=== PATIENT | female | born 1980 | race Caucasian/White ===

== ENCOUNTER 2016-09-15 21:10 | Emergency (ER) | payer BC ==
[~2016-09-15] VITALS: Ht 160 cm; Wt 119.7 kg
[~2016-09-15 21:10] MED LIST: ALPR1TAB2 PO; ALPR1TAB7 PO; ARIP300S3 IM; BNZT1T PO; BREX2TAB PO; CLON0.1T PO; CYCL10TA45 PO; ESCI10TA PO; HYDR-3702 PO; IBP800T PO; LAMO200T14 PO; METF-759 PO; OXYC1TAB6 PO; OXYC1TAB8; OXYC1TAB87 PO; PRM25T GT; TOPI50TA37 PO; TRAM-291ED; ZIPR60CA2 PO
--- OUTSIDE RECORDS SUMMARY | 2016-09-15 21:13 | XMS REPORT | Continuity of Care Document ---
Author Author [facility] Organization [facility] Address Unknown Phone Unavailable Care Team Providers Care Interior Design Project Manager Name Role Phone PCP Unavailable Source Comments Some departments are not documenting in the electronic medical record. If you do not see the information that you expected, contact Release of Information in the Health Information Management department at [phone] for further assistance in locating additional records.[facility] Active Allergies and Adverse Reactions Not on File Current Medications Not on file Active Problems Not on file Social History Tobacco Use Types Packs/Day Years Used Date Never Assessed Plan of Care Health Maintenance Due Date Last Done Comments Physical (Comprehensive) 02/18/1988 Exam Pertussis Vaccine 02/18/1992 Tetanus Vaccine 1998 Cervical Cancer Screening 2002 Influenza Vaccine 05/16/2016 Results from Last 3 Months Not on file
--- OUTSIDE RECORDS SUMMARY | 2016-09-15 21:14 | XMS REPORT | Continuity of Care Document ---
Author Author [facility] Organization [facility] Address Unknown Phone Unavailable Care Team Providers Care Assembler Gold Frame Name Role Phone PCP Unavailable Source Comments Some departments are not documenting in the electronic medical record. If you do not see the information that you expected, contact Release of Information in the Health Information Management department at [phone] for further assistance in locating additional records.[facility] Active Allergies and Adverse Reactions Not on [...]
--- OUTSIDE RECORDS SUMMARY | 2016-09-15 21:17 | XMS REPORT | Continuity of Care Document ---
Author Author [facility] Organization [facility] Address Unknown Phone Unavailable Care Team Providers Care Transition Coach Name Role Phone PCP Unavailable Source Comments Some departments are not documenting in the electronic medical record. If you do not see the information that you expected, contact Release of Information in the Health Information Management department at [phone] for further assistance in locating additional records.[facility] Active Allergies and Adverse Reactions Not [...]
--- OUTSIDE RECORDS SUMMARY | 2016-09-15 21:17 | XMS REPORT | Continuity of Care Document ---
Author Author [facility] Organization [facility] Address Unknown Phone Unavailable Care Team Providers Care Lithographic Press Feeder Name Role Phone PCP Unavailable Source Comments Some departments are not documenting in the electronic medical record. If you do not see the information that you expected, contact Release of Information in the Health Information Management department at [phone] for further assistance in locating additional records.[facility] Active Allergies and Adverse Reactions Not [...]
[2016-09-15] MEDS ORDERED: ESCI20TA39 PO (21:35)
[2016-09-15] MEDS ORDERED: TOPI-27 PO (21:35)
[2016-09-15] MEDS ORDERED: KETOROLAC 30 MG/ML (TORADOL) 1 ML VIAL IV ONE (21:40)
[2016-09-15] MEDS ORDERED: PROMETHAZINE HCL INJ 12.5 MG in SODIUM CHLORIDE 25 ML IV ONE (21:40)
[2016-09-15] MEDS ORDERED: SODIUM CHLORIDE FLUSH 10 ML SYR IV PRN (21:40)
[2016-09-15] MEDS ORDERED: SODIUM CHLORIDE FLUSH 3 ML SYR IV ONE (21:40)
[2016-09-15] MEDS ORDERED: NS IV 500 ML 500 ML IV SCH (21:40)
[2016-09-15 22:12] LABS: BASOPHILS % (AUTO) 1 % (0-2); EOSINOPHILS # (AUTO) 0.4 10^3uL; EOSINOPHILS % (AUTO) 3 % (0-4); LYMPHOCYTES # (AUTO) 3.7 X10^3; MEAN CORPUSCULAR HEMOGLOBIN 29.1 PG (26.0-34.0); MEAN CORPUSCULAR HGB CONC 32.4 g/dL (31.0-37.0); MEAN CORPUSCULAR VOLUME 90 FL (80-100); MONOCYTES # (AUTO) 0.8 X10^3; MONOCYTES % (AUTO) 7 % (3-11); NEUTROPHILS # (AUTO) 6.1 X10^3; NEUTROPHILS % (AUTO) 55 % (51-67); PLATELET COUNT 401 10^3uL (150-450); WHITE BLOOD COUNT 10.96 10^3uL (4.0-11.0)
--- NOTE | 2016-09-15 22:15 | NUR ---
REPORT TAKEN FROM [facility]ION AND ACCEPTED CARE OF PT
[2016-09-15 22:19] LABS: ALBUMIN 3.9 g/dL (3.4-5.0); ANION GAP 16.2 MEQ/L (3-15); CALCULATED IONIZED CALCIUM 4.1 mg/dL (3.8-4.6); TOTAL PROTEIN 6.6 g/dL (6.4-8.5)
[2016-09-15 22:35] LABS: AMPHETAMINE SCREEN, URINE Negative (Negative); CANNABINOID SCREEN, URINE Negative (Negative); METHAMPHETAMINE SCREEN URINE S NEGATIVE (NEGATIVE); OPIATE SCREEN URINE Negative (Negative); PROPOXYPHENE STAT NEGATIVE (NEGATIVE)
[2016-09-15 22:49] LABS: BILIRUBIN,URINE Negative (Negative); CLARITY,URINE Turbid; COLOR,URINE Yellow; GLUCOSE, URINE (UA) Negative (Negative); LEUKOCYTE ESTERASE ,URINE Negative (Negative); PH,URINE 5.5 (5.0 - 8.0); UROBILINOGEN,URINE 0.2 mg/dL (0.2-1.0)
[2016-09-15 23:00] LABS: RBC,URINE 0-2 /HPF; URINE CENTRIFUGED VOLUME 12 mL
[2016-09-16] MEDS ORDERED: ONDANSETRON 2 MG/ML (Z0FRAN) 2 ML VIAL IV ONE (00:55)
[2016-09-16] MEDS ORDERED: HYDROmorphone 1 MG/ML (DILAUDID) SYRINGE IV ONE (00:55)
[2016-09-16 01:36] VITALS: BP 117/85
--- NOTE | 2016-09-16 11:00 | Diagnostic Imaging Report ---
PROCEDURE: CT abdomen and pelvis without contrast. TECHNIQUE: Multiple contiguous axial images were obtained through the abdomen and pelvis without the use of intravenous contrast. INDICATION: Right lower quadrant pain. Study compared 06/19/2016. 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 Liver shows mild hepatic steatosis with previous cholecystectomy. No biliary dilatation. Adrenals, spleen, and pancreas negative. There is no opaque kidney stone. There is no hydronephrosis. There is no appendicitis or diverticulitis. Uterus, adnexa, and urinary bladder appeared normal. No ascites, abscess, hematoma, or other fluid collection. IMPRESSION: Negative appendix. Unobstructed urinary tracts. Fatty liver with no biliary dilatation. No acute-appearing abnormality. Agree with preliminary. Dictated by: Dictated on workstation # [id number]
[2016-11-08] MEDS ORDERED: OXYC1TAB7 PO (20:48)
[2016-11-08] MEDS ORDERED: METH500T35 PO (20:48)
== END 2016-09-16 01:38 | disposition home or self-care (01) ==
LOC: ED 21:12
DX: R10.31 Right lower quadrant pain (principal); R11.2 Nausea with vomiting, unspecified; R10.11 Right upper quadrant pain; M54.9 Dorsalgia, unspecified
CPT/HCPCS: 36415; 74176; 80053; 80307; 81003; 81015; 82150; 83690; 84703; 85025; 86140; 96365; 96375; 99284; J1170; J1885; J2405; J2550; J7040; 99283

== ENCOUNTER 2016-10-01 19:21 | Emergency (ER) | payer BC ==
[~2016-10-01] VITALS: Ht 160 cm; Wt 129.5 kg
[~2016-10-01 19:21] MED LIST changes: +ESCI20TA39 PO; +TOPI-27 PO
--- OUTSIDE RECORDS SUMMARY | 2016-10-01 19:24 | XMS REPORT | Continuity of Care Document ---
Author Author [facility] Organization [facility] Address Unknown Phone Unavailable Care Team Providers Care Relationship Associate Name Role Phone PCP Unavailable Source Comments Some departments are not documenting in the electronic medical record. If you do not see the information that you expected, contact Release of Information in the Health Information Management department at [phone] for further assistance in locating additional records.[facility] Active Allergies and Adverse Reactions Not on [...]
--- OUTSIDE RECORDS SUMMARY | 2016-10-01 19:25 | XMS REPORT | Continuity of Care Document ---
Author Author [facility] Organization [facility] Address Unknown Phone Unavailable Care Team Providers Care Events Director Name Role Phone PCP Unavailable Source Comments Some departments are not documenting in the electronic medical record. If you do not see the information that you expected, contact Release of Information in the Health Information Management department at [phone] for further assistance in locating additional records.[facility] Active Allergies and Adverse Reactions Not [...]
--- OUTSIDE RECORDS SUMMARY | 2016-10-01 19:25 | XMS REPORT | Continuity of Care Document ---
Author Author [facility] Organization [facility] Address Unknown Phone Unavailable Care Team Providers Care Assistant Professor Of Chemistry Name Role Phone PCP Unavailable Source Comments Some departments are not documenting in the electronic medical record. If you do not see the information that you expected, contact Release of Information in the Health Information Management department at [phone] for further assistance in locating additional records.[facility] Active Allergies and Adverse Reactions Not [...]
--- OUTSIDE RECORDS SUMMARY | 2016-10-01 19:25 | XMS REPORT | Continuity of Care Document ---
Author Author [facility] Organization [facility] Address Unknown Phone Unavailable Care Team Providers Care Lining Cutter Name Role Phone PCP Unavailable Source Comments Some departments are not documenting in the electronic medical record. If you do not see the information that you expected, contact Release of Information in the Health Information Management department at [phone] for further assistance in locating additional records.[facility] Active Allergies and Adverse Reactions Not [...]
[2016-10-01] MEDS ORDERED: diphenhydrAMINE 50 MG/ML INJ (BENADRYL) IV ONE (20:15)
[2016-10-01] MEDS ORDERED: KETOROLAC 30 MG/ML (TORADOL) 1 ML VIAL IV ONE (20:15)
[2016-10-01] MEDS ORDERED: PROMETHAZINE HCL INJ 25 MG in SODIUM CHLORIDE 25 ML IV ONE (20:15)
[2016-10-01] MEDS ORDERED: SODIUM CHLORIDE FLUSH 3 ML SYR IV PRN (20:15)
[2016-10-01] MEDS ORDERED: SODIUM CHLORIDE FLUSH 10 ML SYR IV PRN (20:15)
[2016-10-01 22:22] VITALS: BP 162/94
[2016-11-08] MEDS ORDERED: OXYC1TAB7 PO (20:48)
[2016-11-08] MEDS ORDERED: METH500T35 PO (20:48)
== END 2016-10-01 22:21 | disposition home or self-care (01) ==
LOC: ED 19:21
DX: G43.909 Migraine, unspecified, not intractable, without status migrainosus (principal)
CPT/HCPCS: 96361; 96365; 96375; 99283; J1200; J1885; J2550; J7030; 99282

== ENCOUNTER 2016-10-17 22:04 | Emergency (ER) | payer BC ==
[~2016-10-17] VITALS: Ht 162.6 cm; Wt 132.5 kg
[2016-10-17] MEDS ORDERED: diphenhydrAMINE 50 MG/ML INJ (BENADRYL) IV ONE (22:30)
[2016-10-17] MEDS ORDERED: ONDANSETRON 2 MG/ML (Z0FRAN) 2 ML VIAL IV ONE ×2 (22:30→23:55)
[2016-10-17] MEDS ORDERED: SODIUM CHLORIDE FLUSH 3 ML SYR IV PRN (22:30)
[2016-10-17] MEDS ORDERED: KETOROLAC 30 MG/ML (TORADOL) 1 ML VIAL IV ONE (22:30)
[2016-10-17] MEDS: SODIUM CHLORIDE FLUSH 10 ML SYR IV PRN (22:50)
[2016-10-17] MEDS ORDERED: HALOPERIDOL 5 MG/ML (HALDOL) 1 ML AMP IV ONE (23:55)
[2016-10-18] MEDS: SODIUM CHLORIDE FLUSH 10 ML SYR IV PRN
--- NOTE | 2016-10-18 00:52 | NUR ---
CHECKED ON PT AND SHE STATES SHE IS GETTING FRUSTRATED THAT H/A AND NAUSEA JUST NOT GETTING ANY BETTER. LET DR RUSH KNOW THIS AND HE IS NOW IN ROOM WITH PT
[2016-10-18] MEDS ORDERED: METOCLOPRAMIDE 10 MG/2 ML (REGLAN) VIAL IV ONE (00:55)
[2016-10-18 01:19] VITALS: BP 132/88
== END 2016-10-18 01:20 | disposition home or self-care (01) ==
LOC: ED 22:06
DX: G43.909 Migraine, unspecified, not intractable, without status migrainosus (principal)
CPT/HCPCS: 96361; 96374; 96375; 96376; 99283; J1200; J1630; J1885; J2405; J2765; J7030

== ENCOUNTER 2016-10-20 18:27 | Emergency (ER) | payer BC, OTHER ==
[~2016-10-20] VITALS: Ht 162.6 cm; Wt 129.5 kg
[2016-10-20] MEDS ORDERED: METOCLOPRAMIDE 10 MG/2 ML (REGLAN) VIAL IM ONE (19:25)
[2016-10-20] MEDS ORDERED: HYDROmorphone 1 MG/ML (DILAUDID) SYRINGE IM ONE (19:25)
[2016-10-20 19:30] VITALS: BP 127/84
[2016-10-20] MEDS ORDERED: ORPHENADRINE 60 MG/2 ML (NORFLEX) AMP IM ONE (20:35)
--- NOTE | 2016-10-20 20:54 | NUR ---
Pt departed from the ED with her significant other.
== END 2016-10-20 19:30 | disposition home or self-care (01) ==
LOC: ED 18:29
DX: S16.1XXA Strain of muscle, fascia and tendon at neck level, initial encounter (principal); R51 Headache
CPT/HCPCS: 70450; 72125; 96372; 99283; J1170; J2360; J2765; 99282

== ENCOUNTER 2016-11-08 20:23 | Emergency (ER) | payer OTHER, BC ==
[~2016-11-08] VITALS: Ht 162.6 cm; Wt 95.4 kg
[2016-11-08] MEDS ORDERED: SODIUM CHLORIDE FLUSH 3 ML SYR IV PRN (20:45)
[2016-11-08] MEDS ORDERED: ONDANSETRON 2 MG/ML (Z0FRAN) 2 ML VIAL IV ONE (20:45)
[2016-11-08] MEDS ORDERED: SODIUM CHLORIDE FLUSH 10 ML SYR IV PRN (20:45)
[2016-11-08] MEDS ORDERED: LORazepam 2 MG/ML (ATIVAN) 1 ML VIAL IV ONE (20:45)
[2016-11-08] MEDS ORDERED: KETOROLAC 30 MG/ML (TORADOL) 1 ML VIAL IV ONE (20:45)
[2016-11-08] MEDS ORDERED: diphenhydrAMINE 50 MG/ML INJ (BENADRYL) IV ONE (20:45)
[2016-11-08 20:53] LABS: BILIRUBIN,URINE Negative (Negative); COLOR,URINE Yellow; GLUCOSE, URINE (UA) Negative (Negative); LEUKOCYTE ESTERASE ,URINE Negative (Negative); UROBILINOGEN,URINE 0.2 mg/dL (0.2-1.0)
[2016-11-08 20:56] LABS: CLARITY,URINE Slightly Cloudy
[2016-11-08 20:59] LABS: URINE CENTRIFUGED VOLUME 12 mL
[2016-11-08 21:00] LABS: AMORPHOUS SEDIMENT,UR 1+ /HPF
[2016-11-08 21:06] LABS: AMPHETAMINE SCREEN, URINE Negative (Negative); CANNABINOID SCREEN, URINE Negative (Negative); METHAMPHETAMINE SCREEN URINE S NEGATIVE (NEGATIVE); OPIATE SCREEN URINE Negative (Negative)
[2016-11-08 21:07] LABS: PROPOXYPHENE STAT NEGATIVE (NEGATIVE)
[2016-11-08 21:28] LABS: BASOPHILS % (AUTO) 1 % (0-2); EOSINOPHILS # (AUTO) 0.3 10^3uL; EOSINOPHILS % (AUTO) 3 % (0-4); LYMPHOCYTES # (AUTO) 2.6 X10^3; MEAN CORPUSCULAR HEMOGLOBIN 29.2 PG (26.0-34.0); MEAN CORPUSCULAR HGB CONC 32.9 g/dL (31.0-37.0); MEAN CORPUSCULAR VOLUME 89 FL (80-100); MEAN PLATELET VOLUME 9.5 FL (6.0-9.5); MONOCYTES # (AUTO) 1.1 X10^3; MONOCYTES % (AUTO) 10 % (3-11); NEUTROPHILS # (AUTO) 6.7 X10^3; NEUTROPHILS % (AUTO) 63 % (51-67); PLATELET COUNT 354 10^3uL (150-450); WHITE BLOOD COUNT 10.69 10^3uL (4.0-11.0)
[2016-11-08 21:41] LABS: ANION GAP 14.6 MEQ/L (3-15)
[2016-11-08] MEDS ORDERED: HYDROmorphone 1 MG/ML (DILAUDID) SYRINGE IV ONE (22:55)
[2016-11-08 23:27] VITALS: BP 136/90
== END 2016-11-08 23:25 | disposition home or self-care (01) ==
LOC: ED 20:26
DX: G43.809 Other migraine, not intractable, without status migrainosus (principal); R10.9 Unspecified abdominal pain
CPT/HCPCS: 36415; 74176; 80048; 80307; 81003; 81015; 81025; 85025; 96361; 96374; 96375; 99284; J1170; J1200; J1885; J2060; J2405; J7030; 99283

== ENCOUNTER 2016-12-22 01:10 | Emergency (ER) | payer BC, OTHER ==
[~2016-12-22] VITALS: Ht 160 cm; Wt 131.8 kg
[~2016-12-22 01:10] MED LIST changes: +METH500T35 PO; +OXYC1TAB7 PO
--- OUTSIDE RECORDS SUMMARY | 2016-12-22 01:15 | XMS REPORT | Continuity of Care Document ---
Author Author [facility] Organization [facility] Address Unknown Phone Unavailable Care Team Providers Care De Alcholizer Name Role Phone PCP Unavailable Source Comments Some departments are not documenting in the electronic medical record. If you do not see the information that you expected, contact Release of Information in the Health Information Management department at [phone] for further assistance in locating additional records.[facility] Active Allergies and Adverse Reactions Not on File Current Medications Not on file Active Problems Not on file Social History Tobacco Use Types Packs/Day Years Used Date Never Assessed Plan of Care Health Maintenance Due Date Last Done Comments Physical (Comprehensive) 02/18/1988 Exam Pertussis Vaccine 02/18/1992 Tetanus Vaccine 1998 Cervical Cancer Screening 2002 Influenza Vaccine 05/16/2017 Results from Last 3 Months Not on file
--- OUTSIDE RECORDS SUMMARY | 2016-12-22 01:15 | XMS REPORT | Continuity of Care Document ---
Author Author [facility] Organization [facility] Address Unknown Phone Unavailable Care Team Providers Care Shuttle Route Vehicle Operator Name Role Phone PCP Unavailable Source Comments Some departments are not documenting in the electronic medical record. If you do not see the information that you expected, contact Release of Information in the Health Information Management department at [phone] for further assistance in locating additional records.[facility] Active Allergies and Adverse Reactions Not [...]
--- OUTSIDE RECORDS SUMMARY | 2016-12-22 01:17 | XMS REPORT | Continuity of Care Document ---
Author Author [facility] Organization [facility] Address Unknown Phone Unavailable Care Team Providers Care Director For Beauty [employer] Name Role Phone PCP Unavailable Source Comments Some departments are not documenting in the electronic medical record. If you do not see the information that you expected, contact Release of Information in the Health Information Management department at [phone] for further assistance in locating additional records.[facility] Active Allergies and Adverse Reactions Not [...]
--- OUTSIDE RECORDS SUMMARY | 2016-12-22 01:17 | XMS REPORT | Continuity of Care Document ---
Author Author [facility] Organization [facility] Address Unknown Phone Unavailable Care Team Providers Care Associate Vice President Name Role Phone PCP Unavailable Source Comments Some departments are not documenting in the electronic medical record. If you do not see the information that you expected, contact Release of Information in the Health Information Management department at [phone] for further assistance in locating additional records.[facility] [...]
[2016-12-22] MEDS ORDERED: KETOROLAC 60 MG/2 ML (TORADOL) VIAL IM ONE (01:40)
[2016-12-22] MEDS ORDERED: ONDANSETRON 2 MG/ML (Z0FRAN) 2 ML VIAL IV ONE (01:40)
[2016-12-22 02:04] LABS: BASOPHILS % (AUTO) 0 % (0-2); EOSINOPHILS # (AUTO) 0.2 10^3uL; EOSINOPHILS % (AUTO) 2 % (0-4); LYMPHOCYTES # (AUTO) 3.2 X10^3; MEAN CORPUSCULAR HEMOGLOBIN 28.9 PG (26.0-34.0); MEAN CORPUSCULAR VOLUME 90 FL (80-100); MEAN PLATELET VOLUME 9.3 FL (6.0-9.5); MONOCYTES % (AUTO) 9 % (3-11); NEUTROPHILS # (AUTO) 6.5 X10^3; NEUTROPHILS % (AUTO) 59 % (51-67); PLATELET COUNT 321 10^3uL (150-450); WHITE BLOOD COUNT 10.95 10^3uL (4.0-11.0)
[2016-12-22] MEDS ORDERED: KETOROLAC 30 MG/ML (TORADOL) 1 ML VIAL IV ONE (02:05)
[2016-12-22 02:10] LABS: ALBUMIN 3.7 g/dL (3.4-5.0); ANION GAP 14.3 MEQ/L (3-15); CALCULATED IONIZED CALCIUM 3.9 mg/dL (3.8-4.6); TOTAL PROTEIN 6.7 g/dL (6.4-8.5)
[2016-12-22 02:13] LABS: BILIRUBIN,URINE Negative (Negative); CLARITY,URINE Clear; COLOR,URINE Yellow; GLUCOSE, URINE (UA) Negative (Negative); LEUKOCYTE ESTERASE ,URINE Negative (Negative); UROBILINOGEN,URINE 0.2 mg/dL (0.2-1.0)
[2016-12-22 02:16] LABS: HCG,QUALITATIVE URINE Negative (Negative)
[2016-12-22] MEDS ORDERED: SODIUM CHLORIDE FLUSH 10 ML SYR IV PRN (02:20)
[2016-12-22] MEDS ORDERED: SODIUM CHLORIDE FLUSH 3 ML SYR IV ONE (02:20)
[2016-12-22] MEDS ORDERED: ED- ONDANSETRON ODT 4 MG (ZOFRAN) 4 TABLETS/BTL PO ONE (02:40)
[2016-12-22 03:18] VITALS: BP 122/64
== END 2016-12-22 02:50 | disposition home or self-care (01) ==
LOC: ED 01:13
DX: R10.84 Generalized abdominal pain (principal)
CPT/HCPCS: 36415; 80053; 81003; 81025; 83690; 85025; 96361; 96374; 96375; 99284; J1885; J2405; J7030; 99282

== ENCOUNTER 2016-12-28 12:49 | Emergency (ER) | payer OTHER, BC ==
[~2016-12-28] VITALS: Ht 160 cm; Wt 131.5 kg
--- OUTSIDE RECORDS SUMMARY | 2016-12-28 12:56 | XMS REPORT | Continuity of Care Document ---
Author Author [facility] Organization [facility] Address Unknown Phone Unavailable Care Team Providers Care Position Clerk Name Role Phone PCP Unavailable Source Comments Some departments are not documenting in the electronic medical record. If you do not see the information that you expected, contact Release of Information in the Health Information Management department at [phone] for further assistance in locating additional records.[facility] Active Allergies and Adverse Reactions Not on [...]
--- OUTSIDE RECORDS SUMMARY | 2016-12-28 12:56 | XMS REPORT | Continuity of Care Document ---
Author Author [facility] Organization [facility] Address Unknown Phone Unavailable Care Team Providers Care Telephone Surveyor Name Role Phone PCP Unavailable Source Comments Some departments are not documenting in the electronic medical record. If you do not see the information that you expected, contact Release of Information in the Health Information Management department at [phone] for further assistance in locating additional records.[facility] [...]
[2016-12-28] MEDS ORDERED: SUMA6PEN7 SC (13:20)
[2016-12-28] MEDS ORDERED: ZOLM5SPR5 (13:20)
[2016-12-28] MEDS ORDERED: SODIUM CHLORIDE FLUSH 3 ML SYR IV ONE (13:25)
[2016-12-28] MEDS ORDERED: diphenhydrAMINE 50 MG/ML INJ (BENADRYL) IV ONE (13:25)
[2016-12-28] MEDS ORDERED: KETOROLAC 30 MG/ML (TORADOL) 1 ML VIAL IV ONE (13:25)
[2016-12-28] MEDS ORDERED: METOCLOPRAMIDE 10 MG/2 ML (REGLAN) VIAL IV ONE (13:25)
[2016-12-28] MEDS ORDERED: SODIUM CHLORIDE FLUSH 10 ML SYR IV PRN (13:25)
[2016-12-28 19:01] VITALS: BP 119/68
== END 2016-12-28 15:35 | disposition home or self-care (01) ==
LOC: EDUNIT# 12:49 → ED 12:52
DX: G43.909 Migraine, unspecified, not intractable, without status migrainosus (principal)
CPT/HCPCS: 96361; 96374; 96375; 99283; J1200; J1885; J2765; J7030; 99282

== ENCOUNTER 2017-01-02 16:31 | Emergency (ER) | payer OTHER, BC ==
[~2017-01-02] VITALS: Ht 160 cm; Wt 130.0 kg
[~2017-01-02 16:31] MED LIST changes: +SUMA6PEN7 SC; +ZOLM5SPR5
--- OUTSIDE RECORDS SUMMARY | 2017-01-02 16:35 | XMS REPORT | Continuity of Care Document ---
Author Author [facility] Organization [facility] Address Unknown Phone Unavailable Care Team Providers Care Schedule Hanger Name Role Phone PCP Unavailable Source Comments Some departments are not documenting in the electronic medical record. If you do not see the information that you expected, contact Release of Information in the Health Information Management department at [phone] for further assistance in locating additional records.[facility] Active Allergies and Adverse Reactions [...]
--- OUTSIDE RECORDS SUMMARY | 2017-01-02 16:35 | XMS REPORT | Continuity of Care Document ---
Author Author [facility] Organization [facility] Address Unknown Phone Unavailable Care Team Providers Care Shop Worker Name Role Phone PCP Unavailable Source Comments Some departments are not documenting in the electronic medical record. If you do not see the information that you expected, contact Release of Information in the Health Information Management department at [phone] for further assistance in locating additional records.[facility] Active Allergies and Adverse Reactions [...]
--- OUTSIDE RECORDS SUMMARY | 2017-01-02 16:37 | XMS REPORT | Continuity of Care Document ---
Author Author [facility] Organization [facility] Address Unknown Phone Unavailable Care Team Providers Care System Development Engineer Name Role Phone PCP Unavailable Source Comments Some departments are not documenting in the electronic medical record. If you do not see the information that you expected, contact Release of Information in the Health Information Management department at [phone] for further assistance in locating additional records.[facility] Active Allergies and Adverse Reactions [...]
--- OUTSIDE RECORDS SUMMARY | 2017-01-02 16:37 | XMS REPORT | Continuity of Care Document ---
Author Author [facility] Organization [facility] Address Unknown Phone Unavailable Care Team Providers Care Stadium Manager Name Role Phone PCP Unavailable Source Comments Some departments are not documenting in the electronic medical record. If you do not see the information that you expected, contact Release of Information in the Health Information Management department at [phone] for further assistance in locating additional records.[facility] [...]
[2017-01-02] MEDS ORDERED: ONDA4TAB8 PO (16:54)
[2017-01-02] MEDS ORDERED: NORE0.357 PO (16:55)
[2017-01-02] MEDS ORDERED: KETOROLAC 30 MG/ML (TORADOL) 1 ML VIAL IV ONE (17:10)
[2017-01-02] MEDS ORDERED: diphenhydrAMINE 50 MG/ML INJ (BENADRYL) IV ONE (17:10)
[2017-01-02] MEDS ORDERED: METOCLOPRAMIDE 10 MG/2 ML (REGLAN) VIAL IV ONE (17:10)
[2017-01-02] MEDS ORDERED: DEXAMETHASONE 10 MG/ML (DECADRON) VIAL IV ONE (17:10)
[2017-01-02] MEDS ORDERED: SODIUM CHLORIDE FLUSH 10 ML SYR IV PRN (17:20)
[2017-01-02] MEDS ORDERED: SODIUM CHLORIDE FLUSH 3 ML SYR IV PRN (17:20)
[2017-01-02 18:35] VITALS: BP 108/74
== END 2017-01-02 18:53 | disposition home or self-care (01) ==
LOC: ED 16:32
DX: G43.909 Migraine, unspecified, not intractable, without status migrainosus (principal)
CPT/HCPCS: 96361; 96374; 96375; 99283; J1100; J1200; J1885; J2765; J7030; 99282

== ENCOUNTER 2017-01-19 01:41 | Emergency (ER) | payer BC, OTHER ==
[~2017-01-19] VITALS: Ht 160 cm; Wt 132.4 kg
[~2017-01-19 01:41] MED LIST changes: +NORE0.357 PO; +ONDA4TAB8 PO
--- OUTSIDE RECORDS SUMMARY | 2017-01-19 01:45 | XMS REPORT | Continuity of Care Document ---
Author Author [facility] Organization [facility] Address Unknown Phone Unavailable Care Team Providers Care Precise Winder Name Role Phone PCP Unavailable Source Comments Some departments are not documenting in the electronic medical record. If you do not see the information that you expected, contact Release of Information in the Health Information Management department at [phone] for further assistance in locating additional records.[facility] Active Allergies and Adverse Reactions [...]
--- OUTSIDE RECORDS SUMMARY | 2017-01-19 01:45 | XMS REPORT | Continuity of Care Document ---
Author Author [facility] Organization [facility] Address Unknown Phone Unavailable Care Team Providers Care Side Panel Padder Name Role Phone PCP Unavailable Source Comments Some departments are not documenting in the electronic medical record. If you do not see the information that you expected, contact Release of Information in the Health Information Management department at [phone] for further assistance in locating additional records.[facility] Active Allergies and Adverse Reactions Not [...]
--- OUTSIDE RECORDS SUMMARY | 2017-01-19 01:46 | XMS REPORT | Continuity of Care Document ---
Author Author [facility] Organization [facility] Address Unknown Phone Unavailable Care Team Providers Care [place] Name Role Phone PCP Unavailable Source Comments Some departments are not documenting in the electronic medical record. If you do not see the information that you expected, contact Release of Information in the Health Information Management department at [phone] for further assistance in locating additional records.[facility] Active Allergies and Adverse [...]
--- OUTSIDE RECORDS SUMMARY | 2017-01-19 01:47 | XMS REPORT | Continuity of Care Document ---
Author Author [facility] Organization [facility] Address Unknown Phone Unavailable Care Team Providers Care Casino Floorperson Name Role Phone PCP Unavailable Source Comments Some departments are not documenting in the electronic medical record. If you do not see the information that you expected, contact Release of Information in the Health Information Management department at [phone] for further assistance in locating additional records.[facility] Active Allergies and Adverse Reactions [...]
[2017-01-19] MEDS ORDERED: KETOROLAC 30 MG/ML (TORADOL) 1 ML VIAL IV ONE (02:00)
[2017-01-19] MEDS ORDERED: ONDANSETRON 2 MG/ML (Z0FRAN) 2 ML VIAL IV ONE (02:00)
[2017-01-19] MEDS ORDERED: SODIUM CHLORIDE FLUSH 10 ML SYR IV PRN (02:00)
[2017-01-19] MEDS ORDERED: SODIUM CHLORIDE FLUSH 3 ML SYR IV PRN (02:00)
[2017-01-19 02:21] LABS: BASOPHILS % (AUTO) 0 % (0-2); EOSINOPHILS # (AUTO) 0.3 10^3uL; EOSINOPHILS % (AUTO) 3 % (0-4); LYMPHOCYTES # (AUTO) 2.8 X10^3; MEAN CORPUSCULAR HEMOGLOBIN 29.2 PG (26.0-34.0); MEAN CORPUSCULAR VOLUME 93 FL (80-100); MEAN PLATELET VOLUME 9.6 FL (6.0-9.5); MONOCYTES # (AUTO) 0.7 X10^3; MONOCYTES % (AUTO) 9 % (3-11); NEUTROPHILS # (AUTO) 4.5 X10^3; NEUTROPHILS % (AUTO) 54 % (51-67); PLATELET COUNT 317 10^3uL (150-450); WHITE BLOOD COUNT 8.33 10^3uL (4.0-11.0)
[2017-01-19] MEDS: morphine INJ 4 MG/ML 1 ML SYRINGE IV PRN ×2 (02:23→03:00)
[2017-01-19 02:28] LABS: MEAN CORPUSCULAR HGB CONC 31.5 g/dL (31.0-37.0)
[2017-01-19 02:29] LABS: ANION GAP 15.6 MEQ/L (3-15); TOTAL PROTEIN 7.1 g/dL (6.4-8.5)
[2017-01-19] MEDS ORDERED: METOCLOPRAMIDE 10 MG/2 ML (REGLAN) VIAL IV ONE (03:05)
[2017-01-19] MEDS ORDERED: HYDROmorphone 1 MG/ML (DILAUDID) SYRINGE IV ONE ×2 (03:05→04:15)
--- NOTE | 2017-01-19 03:20 | NUR ---
PT STATED SHE THOUGHT IF SHE GOT THIS SECOND DILAUDID SHE COULD GO HOME IT MAKES HER FEEL BETTER. US OBTAINED PRIOR TO GIVING THE DILAUDID
[2017-01-19] MEDS ORDERED: METO-311 PO (03:37)
[2017-01-19] MEDS ORDERED: NF-TORA10 PO (03:37)
[2017-01-19] MEDS ORDERED: TAMSULOSIN 0.4 MG (FLOMAX) CAP PO ONE (03:40)
[2017-01-19] MEDS ORDERED: HYDROmorphone 1 MG/ML (DILAUDID) SYRINGE ONE (04:11)
[2017-01-19 04:35] LABS: BILIRUBIN,URINE Negative (Negative); CLARITY,URINE Clear; COLOR,URINE Yellow; GLUCOSE, URINE (UA) Negative (Negative); LEUKOCYTE ESTERASE ,URINE Negative (Negative); UROBILINOGEN,URINE 0.2 mg/dL (0.2-1.0)
[2017-01-19 05:11] VITALS: BP 109/74
== END 2017-01-19 05:13 | disposition home or self-care (01) ==
LOC: ED 01:42
DX: R10.32 Left lower quadrant pain (principal); M54.89 Other dorsalgia; Z87.442 Personal history of urinary calculi
CPT/HCPCS: 36415; 80053; 81003; 82150; 83690; 85025; 96361; 96374; 96375; 96376; 99284; J1170; J1885; J2270; J2405; J2765; J7030; 99282

== ENCOUNTER 2017-02-03 22:08 | Emergency (ER) | payer BC ==
[~2017-02-03] VITALS: Ht 160 cm; Wt 173.8 kg
[~2017-02-03 22:08] MED LIST changes: +METO-311 PO; +NF-TORA10 PO
--- OUTSIDE RECORDS SUMMARY | 2017-02-03 22:13 | XMS REPORT | Continuity of Care Document ---
Author Author [facility] Organization [facility] Address Unknown Phone Unavailable Care Team Providers Care Consultants Intern Name Role Phone PCP Unavailable Source Comments Some departments are not documenting in the electronic medical record. If you do not see the information that you expected, contact Release of Information in the Health Information Management department at [phone] for further assistance in locating additional records.[facility] [...]
--- OUTSIDE RECORDS SUMMARY | 2017-02-03 22:13 | XMS REPORT | Continuity of Care Document ---
Author Author [facility] Organization [facility] Address Unknown Phone Unavailable Care Team Providers Care Oral And Maxillofacial Surgery Name Role Phone PCP Unavailable Source Comments Some departments are not documenting in the electronic medical record. If you do not see the information that you expected, contact Release of Information in the Health Information Management department at [phone] for further assistance in locating additional records.[facility] Active Allergies and Adverse Reactions Not [...]
--- OUTSIDE RECORDS SUMMARY | 2017-02-03 22:14 | XMS REPORT | Continuity of Care Document ---
Author Author [facility] Organization [facility] Address Unknown Phone Unavailable Care Team Providers Care Weaving Machine Operator Name Role Phone PCP Unavailable Source Comments Some departments are not documenting in the electronic medical record. If you do not see the information that you expected, contact Release of Information in the Health Information Management department at [phone] for further assistance in locating additional records.[facility] Active Allergies and Adverse Reactions Not [...]
--- OUTSIDE RECORDS SUMMARY | 2017-02-03 22:14 | XMS REPORT | Continuity of Care Document ---
Author Author [facility] Organization [facility] Address Unknown Phone Unavailable Care Team Providers Care Hardboard Factory Worker Name Role Phone PCP Unavailable Source Comments Some departments are not documenting in the electronic medical record. If you do not see the information that you expected, contact Release of Information in the Health Information Management department at [phone] for further assistance in locating additional records.[facility] Active Allergies and Adverse Reactions Not on [...]
[2017-02-03] MEDS ORDERED: KETOROLAC 60 MG/2 ML (TORADOL) VIAL IM ONE (22:35)
[2017-02-03] MEDS ORDERED: ONDANSETRON 2 MG/ML (Z0FRAN) 2 ML VIAL IM ONE (22:35)
[2017-02-03] MEDS ORDERED: HYDROmorphone 2 MG/ML (DILAUDID) 1 ML SYRINGE IM ONE (22:35)
[2017-02-03] MEDS ORDERED: SODIUM CHLORIDE FLUSH 3 ML SYR IV ONE (22:40)
[2017-02-03] MEDS ORDERED: ONDANSETRON 2 MG/ML (Z0FRAN) 2 ML VIAL IV ONE (22:40)
[2017-02-03] MEDS ORDERED: HYDROmorphone 1 MG/ML (DILAUDID) SYRINGE IV ONE ×2 (22:40→23:40)
[2017-02-03] MEDS ORDERED: SODIUM CHLORIDE FLUSH 10 ML SYR IV PRN (22:40)
[2017-02-03] MEDS ORDERED: KETOROLAC 30 MG/ML (TORADOL) 1 ML VIAL IV ONE (22:40)
[2017-02-03 23:12] LABS: BASOPHILS % (AUTO) 0 % (0-2); EOSINOPHILS # (AUTO) 0.2 10^3uL; EOSINOPHILS % (AUTO) 2 % (0-4); LYMPHOCYTES # (AUTO) 2.5 X10^3; MEAN CORPUSCULAR HEMOGLOBIN 29.3 PG (26.0-34.0); MEAN CORPUSCULAR HGB CONC 31.8 g/dL (31.0-37.0); MEAN CORPUSCULAR VOLUME 92 FL (80-100); MEAN PLATELET VOLUME 9.1 FL (6.0-9.5); MONOCYTES # (AUTO) 0.9 X10^3; MONOCYTES % (AUTO) 9 % (3-11); NEUTROPHILS # (AUTO) 6.1 X10^3; NEUTROPHILS % (AUTO) 62 % (51-67); PLATELET COUNT 345 10^3uL (150-450); WHITE BLOOD COUNT 9.75 10^3uL (4.0-11.0)
[2017-02-03 23:21] LABS: BILIRUBIN,URINE Negative (Negative); COLOR,URINE Yellow; GLUCOSE, URINE (UA) Negative (Negative); LEUKOCYTE ESTERASE ,URINE Negative (Negative); UROBILINOGEN,URINE 0.2 mg/dL (0.2-1.0)
[2017-02-03 23:22] LABS: ALBUMIN 3.9 g/dL (3.4-5.0); ANION GAP 11.9 MEQ/L (3-15); CALCULATED IONIZED CALCIUM 3.8 mg/dL (3.8-4.6); TOTAL PROTEIN 7.1 g/dL (6.4-8.5)
[2017-02-03 23:31] LABS: CLARITY,URINE Slightly Cloudy
[2017-02-03 23:34] LABS: AMORPHOUS SEDIMENT,UR 1+ /HPF; AMPHETAMINE SCREEN, URINE Negative (Negative); CANNABINOID SCREEN, URINE Negative (Negative); METHAMPHETAMINE SCREEN URINE S NEGATIVE (NEGATIVE); OPIATE SCREEN URINE Negative (Negative); PROPOXYPHENE STAT NEGATIVE (NEGATIVE); RBC,URINE None Seen /HPF; URINE CENTRIFUGED VOLUME 12 mL
[2017-02-03] MEDS ORDERED: PROMETHAZINE HCL INJ 12.5 MG in SODIUM CHLORIDE 25 ML IV ONE (23:40)
[2017-02-03] MEDS ORDERED: OXYC1TAB87 PO (23:42)
[2017-02-04 01:08] VITALS: BP 116/62
== END 2017-02-04 00:15 | disposition home or self-care (01) ==
LOC: ED 22:09
DX: N23 Unspecified renal colic (principal); R10.84 Generalized abdominal pain
CPT/HCPCS: 36415; 80053; 80307; 81003; 81015; 83690; 85025; 86140; 96361; 96365; 96375; 96376; 99283; J1170; J1885; J2405; J2550; J7030; 99282